=== PATIENT | male | born 1975 | race Two or more races ===

== ENCOUNTER → 2024-04-09 | Outpatient (CLI) | payer OTHER, SELFPAY ==
--- NOTE | 2024-04-09 10:00 | XR_ITS ---
Examination: Pelvic ultrasound, transabdominal, complete Technique: Transabdominal ultrasound of the pelvis performed using grayscale imaging Date and time of exam: April 09, 2024 0943 hours INDICATIONS: Pelvic pain beginning 3 months ago FINDINGS: Bladder prevoid volume 170 cc postvoid volume 36 cc No bladder mass or bladder calculi Prostate 4.4 x 3.3 x 4.3 cm volume 32.9 cc no prostate nodules IMPRESSION: No bladder mass or bladder calculi No pelvic mass No significant prostatomegaly, no prostate nodules
--- NOTE | 2024-04-09 10:30 | XR_ITS ---
Examination: Testicular sonography complete TECHNIQUE: Grayscale sonographic images testes, assessment arterial inflow venous outflow Doppler spectral analysis, flow analysis Exam date and time: April 09, 2024 0954 hours INDICATIONS: Sharp pulling sensation in the penile region 3 months intermittent FINDINGS: Right testis 3.4 x 2.1 x 2.8 cm Epididymis 18 mm 13 mm epididymal cyst Arterial flow testicle. No solid testicular mass Anterior right testicle cyst 5 mm Left testis 4.4 x 2.3 x 2.9 cm Epididymis 14 mm Arterial flow testicle. No testicular mass Minimal hydrocele IMPRESSION: No testicular torsion or testicular mass 13 mm right epididymal cyst 5 mm right testicular cyst
== END | disposition home or self-care (01) ==
LOC: CDIM 09:30
PROVIDERS: PCP Family Medicine; Referring Provider Physician Assistant; Visit Provider Physician Assistant
DX: R10.2 Pelvic and perineal pain (principal); L72.9 Follicular cyst of the skin and subcutaneous tissue, unspecified; N50.89 Other specified disorders of the male genital organs
CPT/HCPCS: 76856; 76870

== ENCOUNTER → 2024-04-27 | Outpatient (CLI) | payer OTHER, SELFPAY | END | disposition home or self-care (01) | LOC: SLDO 14:46 | PROVIDERS: PCP Nurse Practitioner Family; Referring Provider Nurse Practitioner Family; Visit Provider Nurse Practitioner Family | DX: R30.0 Dysuria (principal) | CPT/HCPCS: 87086 ==